=== PATIENT | female | born 1990 | race Caucasian/White ===

== ENCOUNTER 2017-03-12 12:09 | Observation (INO) | payer BC, MEDICAID ==
[2017-03-12 12:15] VITALS: TEMP 97.7
[2017-03-12] MEDS ORDERED: ONDANSETRON 4 MG/2 ML VIAL ONE (12:36)
[2017-03-12] MEDS ORDERED: LORazepam 2 MG/ML INJ ONE (12:47)
[2017-03-12] MEDS ORDERED: LORazepam 2 MG/ML INJ IVP ONE (12:53)
[2017-03-12] MEDS ORDERED: ONDANSETRON 4 MG/2 ML VIAL IVP ONE (12:53)
--- NOTE | 2017-03-12 13:00 | EDPHY ---
H & P Time Seen by Provider: 03/12/17 12:57 HPI/ROS: Chief complaint. Chest pain, vomiting HPI. 26-year-old female this morning 6 hours ago began have vomiting and diarrhea. She has epigastric and retrosternal chest discomfort described as pressure, sharp, burning. No radiation. No shortness of breath. Possible bad food exposure otherwise no travel. She does have a history of GERD. She was well yesterday and has not been sick. No fever. Boyfriend states history of GERD and patient is noncompliant with her medication ROS Constitutional. no fever/chills, no weakness Eyes. no problems with vision ENT. no sore throat, no nasal drainage Cardiovascular. Retrosternal chest pain Respiratory. no shortness of breath, no cough Abdominal. Epigastric pain with nausea vomiting and diarrhea . no problems urinating MS. no calf pain/swelling, no neck/back pain, no joint pain Skin. no rash Lymph. no swollen glands Neuro. no headache, no dizziness, no difficulty walking or with speech Past Medical/Surgical History: GERD Social History: Single, nonsmoker, no alcohol Smoking Status: Never smoked Physical Exam: General Appearance: Alert well-developed female moderate distress vital signs are stable Eyes: Pupils equal and round no pallor or injection. ENT, Mouth: Mucous membranes are moist. Respiratory: There are no retractions, lungs are clear to auscultation. Cardiovascular: Regular rate and rhythm. Gastrointestinal: Abdomen is soft with tenderness in the epigastrium. No masses. No organomegaly Neurological: Awake and alert, sensory and motor exams grossly normal. Skin: Warm and dry, no rashes. Musculoskeletal: Neck is supple nontender. Extremities symmetrical, full range of motion. Psychiatric: Patient is oriented X 3, there is no agitation. Constitutional: Initial Vital Signs Temperature (C) 36.5 C 03/12/17 12:12 Heart Rate 72 03/12/17 12:12 Respiratory Rate 18 03/12/17 12:12 Blood Pressure 99/80 L 03/12/17 12:12 O2 Sat (%) 97 03/12/17 12:12 O2 Delivery Mode Room Air Allergies/Adverse Reactions: No Known Allergies Allergy (Unverified 03/12/17 12:12) Home Medications: Medication Instructions Recorded NK [No Known Home Meds] 03/12/17 Medical Decision Making - Diagnostics EKG Interpretation: EKG interpreted by me shows normal sinus rhythm with normal interval and axis. QRS significant for incomplete right bundle branch block. Otherwise no significant ST elevation or depression. No arrhythmia. The rate is 63. No old EKGs for comparison Imaging Results: Imaging Impressions Chest X-Ray 03/12/17 13:07 Impression: Normal. One-view chest x-ray interpreted by me is normal Procedures: IV normal saline. Morphine for pain. Zofran for nausea ED Course/Re-evaluation: Re-evaluation at 2:50 p.m. patient continues to have epigastric pain and nausea. She is treated with Reglan and Benadryl. She and I discussed lab and imaging results. We discussed treatment plan including recommendation for admission. She expresses understanding and agreement Patient is again complaining of pain and nausea. She is also given Haldol 5 mg IV. I consulted and discussed case with Dr. Mancuso, hospitalist, who agrees to the admission Differential Diagnosis: I believe this is probably gastritis and esophagitis. She has been given IV Pepcid as well as GI cocktail. The history from boyfriend is that she has a his history of same and has been noncompliant with medications. I considered pulmonary embolus, acute coronary syndrome, pancreatitis however I do not see any evidence of this. However she is clearly not able to go home at this point. She will be admitted to observation. - Data Points Laboratory Results: Laboratory Results 03/12/17 12:29 03/12/17 12:29 03/12/17 03/12/17 03/12/17 13:20 12:29 12:29 WBC RBC Hgb Hct MCV MCH MCHC RDW Plt Count MPV Neut % (Auto) Lymph % (Auto) [place] % (Auto) Eos % (Auto) Baso % (Auto) Nucleat RBC Rel Count Absolute Neuts (auto) Absolute Lymphs (auto) Absolute Monos (auto) Absolute Eos (auto) Absolute Basos (auto) Absolute Nucleated RBC Immature Gran % Immature Gran # D-Dimer < 0.27 ug/mLFEU ug/mLFEU (0.00-0.50) Sodium 142 mEq/L mEq/L (134-144) Potassium 3.8 mEq/L mEq/L (3.5-5.2) Chloride 103 mEq/L mEq/L (97-110) Carbon Dioxide 25 mEq/l mEq/l (22-31) Anion Gap 14 mEq/L mEq/L (8-16) BUN 11 mg/dL mg/dL (7-23) Creatinine 0.6 mg/dL mg/dL (0.6-1.0) Estimated GFR > 60 Glucose 118 mg/dL H mg/dL (70-100) Calcium 10.3 mg/dL mg/dL (8.5-10.4) Troponin I < 0.012 ng/mL ng/mL (0-0.034) Lipase 131.0 IU/L IU/L (23-300) Beta HCG, Qual NEGATIVE 03/12/17 12:29 WBC 12.02 10^3/uL H 10^3/uL (3.80-9.50) RBC 5.52 10^6/uL H 10^6/uL (4.18-5.33) Hgb 15.5 g/dL g/dL (12.6-16.3) Hct 44.6 % % (38.0-47.0) MCV 80.8 fL L fL (81.5-99.8) MCH 28.1 pg pg (27.9-34.1) MCHC 34.8 g/dL g/dL (32.4-36.7) RDW 11.9 % % (11.5-15.2) Plt Count 272 10^3/uL 10^3/uL (150-400) MPV 8.9 fL fL (8.7-11.7) Neut % (Auto) 85.4 % H % (39.3-74.2) Lymph % (Auto) 7.6 % L % (15.0-45.0) [place] % (Auto) 6.2 % % (4.5-13.0) Eos % (Auto) 0.1 % L % (0.6-7.6) Baso % (Auto) 0.2 % L % (0.3-1.7) Nucleat RBC Rel Count 0.0 % % (0.0-0.2) Absolute Neuts (auto) 10.27 10^3/uL H 10^3/uL (1.70-6.50) Absolute Lymphs (auto) 0.91 10^3/uL L 10^3/uL (1.00-3.00) Absolute Monos (auto) 0.75 10^3/uL 10^3/uL (0.30-0.80) Absolute Eos (auto) 0.01 10^3/uL L 10^3/uL (0.03-0.40) Absolute Basos (auto) 0.02 10^3/uL 10^3/uL (0.02-0.10) Absolute Nucleated RBC 0.00 10^3/uL 10^3/uL (0-0.01) Immature Gran % 0.5 % % (0.0-1.1) Immature Gran # 0.06 10^3/uL 10^3/uL (0.00-0.10) D-Dimer Sodium Potassium Chloride Carbon Dioxide Anion Gap BUN Creatinine Estimated GFR Glucose Calcium Troponin I Lipase Beta HCG, Qual Medications Given: Discontinued Medications Al Hydroxide/Mg Hydroxide (Maalox Susp) 30 ml PO ONCE ONE Stop: 03/12/17 13:07 Last Admin: 03/12/17 13:30 Dose: 30 ml Diphenhydramine HCl (Benadryl Injection) 25 mg IVP EDNOW ONE Stop: 03/12/17 14:55 Last Admin: 03/12/17 15:11 Dose: 25 mg Diphenhydramine HCl (Benadryl Injection) 25 mg IVP EDNOW ONE Stop: 03/12/17 15:12 Last Admin: 03/12/17 15:28 Dose: Not Given Hyoscyamine Sulfate (Levsin, Hyomax-Sl) 0.25 mg PO ONCE ONE Stop: 03/12/17 13:07 Last Admin: 03/12/17 13:25 Dose: 0.25 mg Sodium Chloride (Ns) 1,000 mls @ 0 mls/hr IV ONCE ONE PRN Reason: Wide Open Stop: 03/12/17 13:07 Last Admin: 03/12/17 13:00 Dose: 1,000 mls Famotidine/Sodium Chloride (Pepcid 20 Mg (Premix)) 50 mls @ 200 mls/hr IV EDNOW ONE Stop: 03/12/17 13:20 Last Admin: 03/12/17 13:25 Dose: 50 mls Lidocaine (Lidocaine 2% Viscous) 15 ml PO ONCE ONE Stop: 03/12/17 13:07 Last Admin: 03/12/17 13:30 Dose: 15 ml Lorazepam (Ativan Injection) 0.5 mg IVP EDNOW ONE Stop: 03/12/17 12:54 Last Admin: 03/12/17 12:54 Dose: 0.5 mg Metoclopramide HCl (Reglan Injection) 10 mg IVP EDNOW ONE Stop: 03/12/17 14:55 Last Admin: 03/12/17 15:11 Dose: 10 mg Morphine Sulfate (Morphine) 6 mg IVP EDNOW ONE Stop: 03/12/17 13:07 Last Admin: 03/12/17 13:29 Dose: 6 mg Ondansetron HCl (Zofran) 4 mg IVP EDNOW ONE Stop: 03/12/17 12:54 Last Admin: 03/12/17 12:35 Dose: 4 mg Departure - Departure Disposition: [facility] Inpatient Acute Clinical Impression: Abdominal pain Qualifiers: Abdominal location: epigastric Qualified Code(s): R10.13 - Epigastric pain Condition: Fair
[2017-03-12] MEDS ORDERED: NS 1,000 ML IV ONE (13:06)
[2017-03-12] MEDS ORDERED: FAMOTIDINE 20 MG/NACL 50 ML IV ONE (13:06)
[2017-03-12] MEDS ORDERED: MAG HYDROX/AL HYDROX/SIMETH 30 ML UDCUP PO ONE (13:06)
[2017-03-12] MEDS ORDERED: LIDOCAINE 2% VISCOUS 15 ML UDCUP PO ONE (13:06)
[2017-03-12] MEDS ORDERED: HYOSCYAMINE SULFATE 0.125 MG TAB PO ONE (13:06)
[2017-03-12 13:15] LABS: % IMMATURE GRANULYOCYTES 0.5 % (0.0-1.1); ABSOLUTE IMMATURE GRANULOCYTES 0.06 10^3/uL (0.00-0.10); ADD DIFF? NO; ADD MORPH? NO; ADD SCAN? NO; ATYPICAL LYMPHOCYTE FLAG 0 (0-99); FRAGMENT RBC FLAG 0 (0-99); HEMATOCRIT 44.6 % (38.0-47.0); HEMOGLOBIN 15.5 g/dL (12.6-16.3); LEFT SHIFT FLG 10 (0-99); LIPEMIA HEMOLYSIS FLAG 90 (0-99); MEAN CELL HEMOGLOBIN 28.1 pg (27.9-34.1); MEAN CELL HEMOGLOBIN CONCENTR. 34.8 g/dL (32.4-36.7); MEAN CELL VOLUME 80.8 fL (81.5-99.8); MEAN PLATELET VOLUME 8.9 fL (8.7-11.7); PLATELET CLUMPS FLAG 0 (0-99); PLATELET COUNT 272 10^3/uL (150-400); RED BLOOD CELL COUNT 5.52 10^6/uL (4.18-5.33); RED CELL DISTRIBUTION WIDTH 11.9 % (11.5-15.2)
--- NOTE | 2017-03-12 13:28 | CPEKG ---
Heart Rate: 63 RR Interval: 952 P-R Interval: 128 QRSD Interval: 106 QT Interval: 424 QTC Interval: 435 P Naselle: 61 QRS Naselle: 77 T Wave Naselle: 54 EKG Severity - ABNORMAL ECG - EKG Impression: SINUS RHYTHM EKG Impression: INCOMPLETE RIGHT BUNDLE BRANCH BLOCK EKG Impression: LOW VOLTAGE IN FRONTAL LEADS Electronically Signed By: Tim Parker 12-Mar-2017 13:38:27
[2017-03-12 14:44] LABS: ANION GAP 14 mEq/L (8-16); CALCIUM 10.3 mg/dL (8.5-10.4); CARBON DIOXIDE 25 mEq/l (22-31); CHLORIDE 103 mEq/L (97-110); CREATININE 0.6 mg/dL (0.6-1.0); GLOMERULAR FILTRATION RATE > 60; GLUCOSE 118 mg/dL (70-100); POTASSIUM 3.8 mEq/L (3.5-5.2); SODIUM 142 mEq/L (134-144)
[2017-03-12] MEDS ORDERED: METOCLOPRAMIDE 10 MG/2 ML VIAL IVP ONE (14:54)
[2017-03-12 14:55] LABS: TROPONIN I < 0.012 ng/mL (0-0.034)
[2017-03-12] MEDS ORDERED: HALOPERIDOL LACT 5 MG/ML INJ IVP ONE (15:11)
[2017-03-12 15:13] VITALS: RESP 18; O2SAT 93
--- NOTE | 2017-03-12 15:46 | PDGENHP ---
History and Physical - Chief Complaint abdominal pain - History of Present Illness This is a 26-year-old female with no significant past medical history presents to the emergency department with abdominal pain. Pain began abruptly this morning is described as 10/10 in her upper abdomen and esophagus. It is associated with nausea vomiting and diarrhea. SHe is unaware if she had any bloody emesis or coffee-ground emesis. She has not been able to eat since the onset of her symptoms. She has some chills but denies fevers. Denies any sick contacts. She denies any history of GERD to me. In the emergency department she was treated with Zofran, Reglan, Benadryl, Haldol, IV Pepcid, Ativan, and 6 mg of IV morphine without significant improvement in her pain. History Information - Allergies/Home Medication List Allergies/Adverse Reactions: No Known Allergies Allergy (Unverified 03/12/17 12:12) Home Medications: NK [No Known Home Meds] 03/12/17 [Last Taken Unknown] I have personally reviewed and updated: family history, medical history, social history, surgical history - Past Medical History no pertinent PMH - Surgical History Reports: no pertinent surgical hx - Social History Smoking Status: Never smoked Alcohol Use: None Drug Use: None Review of Systems ROS: 10pt was reviewed & negative except for what was stated in HPI & below Physical Exam Temp Pulse Resp BP Pulse Ox 36.5 C 78 18 108/66 93 03/12/17 12:12 03/12/17 14:50 03/12/17 14:50 03/12/17 14:50 03/12/17 14:50 Constitutional: uncomfortable Eyes: PERRL, anicteric sclera, EOMI Ears, Nose, Mouth, Throat: moist mucous membranes, hearing normal, ears appear normal, no oral mucosal ulcers, dry mucous membranes Cardiovascular: regular rate and rhythym, no murmur, rub, or gallop, No tachycardia, No edema Respiratory: no respiratory distress, no rales or rhonchi, clear to auscultation Gastrointestinal: normoactive bowel sounds, soft, non-tender abdomen, no palpable masses, tenderness ( Diffuse in all 4 quadrants), No ascites, No guarding, No rebound Genitourinary: no bladder fullness, no bladder tenderness Skin: warm, normal color, no rashes or abrasions, no fluctuance, no induration, No mottled Musculoskeletal: full muscle strength, no muscle tenderness, normal joint ROM, no joint effusions Neurologic: AAOx3, CN II-XII Intact, No facial droop Lymph, Heme, Immunologic: no cervical LAD, no supraclavicular LAD Lab Data & Imaging Review 03/12/17 12:29 03/12/17 12: WBC 12.02 10^3/uL (3.80-9.50) H 03/12/17 12: RBC 5.52 10^6/uL (4.18-5.33) H 03/12/17 12: Hgb 15.5 g/dL (12.6-16.3) 03/12/17 12: Hct 44.6 % (38.0-47.0) 03/12/17 12: MCV 80.8 fL (81.5-99.8) L 03/12/17 12: MCH 28.1 pg (27.9-34.1) 03/12/17 12: MCHC 34.8 g/dL (32.4-36.7) 03/12/17 12: RDW 11.9 % (11.5-15.2) 03/12/17 12: Plt Count 272 10^3/uL (150-400) 03/12/17 12: MPV 8.9 fL (8.7-11.7) 03/12/17 12: Neut % (Auto) 85.4 % (39.3-74.2) H 03/12/17 12: Lymph % (Auto) 7.6 % (15.0-45.0) L 03/12/17 12: [place] % (Auto) 6.2 % (4.5-13.0) 03/12/17 12: Eos % (Auto) 0.1 % (0.6-7.6) L 03/12/17 12: Baso % (Auto) 0.2 % (0.3-1.7) L 03/12/17 12: Nucleat RBC Rel Count 0.0 % (0.0-0.2) 03/12/17 12: Absolute Neuts (auto) 10.27 10^3/uL (1.70-6.50) H 03/12/17 12:29 Absolute Lymphs (auto) 0.91 10^3/uL (1.00-3.00) L 03/12/17 12:29 Absolute Monos (auto) 0.75 10^3/uL (0.30-0.80) 03/12/17 12:29 Absolute Eos (auto) 0.01 10^3/uL (0.03-0.40) L 03/12/17 12:29 Absolute Basos (auto) 0.02 10^3/uL (0.02-0.10) 03/12/17 12: Absolute Nucleated RBC 0.00 10^3/uL (0-0.01) 03/12/17 12: Immature Gran % 0.5 % (0.0-1.1) 03/12/17 12: Immature Gran # 0.06 10^3/uL (0.00-0.10) 03/12/17 12:29 D-Dimer < 0.27 ug/mLFEU (0.00-0.50) 03/12/17 13:20 Sodium 142 mEq/L (134-144) 03/12/17 12:29 Potassium 3.8 mEq/L (3.5-5.2) 03/12/17 12: Chloride 103 mEq/L (97-110) 03/12/17 12: Carbon Dioxide 25 mEq/l (22-31) 03/12/17 12: Anion Gap 14 mEq/L (8-16) 03/12/17 12: BUN 11 mg/dL (7-23) 03/12/17 12:29 Creatinine 0.6 mg/dL (0.6-1.0) 03/12/17 12:29 Estimated GFR > 60 03/12/17 12: Glucose 118 mg/dL (70-100) H 03/12/17 12:29 Calcium 10.3 mg/dL (8.5-10.4) 03/12/17 12:29 Troponin I < 0.012 ng/mL (0-0.034) 03/12/17 12: Lipase 131.0 IU/L (23-300) 03/12/17 12:29 Beta HCG, Qual NEGATIVE 03/12/17 12:29 Visualized and Interpreted Chest x-ray results: Yes Chest X-Ray results: no infiltrate, normal Visualized and Interpreted EKG results: Yes EKG Interpretation: Positive for: normal sinsus rhythm ( 63 beats per minute), right bundle branch block ( incomplete). Negative for: ST elevation, ST depression Assessment & Plan Assessment: This is a 26-year-old female with no significant past medical history presenting with: # diffuse abdominal an esophageal pain in the setting of nausea vomiting diarrhea suspect acute gastroenteritis versus gastritis - place in observation - IV fluids - IV antiemetics and pain medications as needed # mild leukocytosis likely due to above - continue to monitor
[2017-03-12] MEDS ORDERED: ONDANSETRON 4 MG/2 ML VIAL IVP PRN (15:50)
[2017-03-12] MEDS ORDERED: ACETAMINOPHEN 325 MG TAB PO PRN (15:50)
[2017-03-12] MEDS ORDERED: LORazepam 2 MG/ML INJ IVP PRN (15:50)
[2017-03-12] MEDS ORDERED: PROMETHAZINE HCL 25 MG SUPPR PR PRN (15:51)
[2017-03-12] MEDS ORDERED: PANTOPRAZOLE SODIUM 40 MG in NS 100 ML IV SCH (16:00)
[2017-03-12] MEDS ORDERED: D5W 1/2 NS W/ 20 KCl/L 1,000 ML IV SCH (16:00)
[2017-03-12 16:10] VITALS: BP 116/67; PULSE 74
--- NOTE | 2017-03-12 21:12 | GDS ---
[f rep st] DISCHARGE SUMMARY DISCHARGE DIAGNOSIS: Improved abdominal pain, and nausea, vomiting, and diarrhea, most likely due t o acute gastroenteritis versus gastritis. OBSERVATION COURSE TODAY: Nausea, vomiting, diarrhea, and abdominal pain: The patient was placed o n observation. After receiving Haldol, Ativan, Reglan, morphine in the emergency department, she wa s transferred to the observation unit. Upon arrival to the observation unit, her symptoms improved. She is now able to tolerate clear liquids, and the patient has requested to be discharged home. DISCHARGE MEDICATIONS: Please refer to discharge medication reconciliation in [facility]. DISCHARGE INSTRUCTIONS: The patient was discharged from the hospital where she should follow up wit h her primary care provider in the next week. She should seek medical attention if her symptoms per sist or worsen. /[id number]/MODL
== END 2017-03-12 19:52 | disposition home or self-care (01) ==
LOC: F1N 17:03
PROVIDERS: ADMIT Family Medicine; ATTEND Family Medicine
DX: R10.13 Epigastric pain (principal); R11.2 Nausea with vomiting, unspecified; R19.7 Diarrhea, unspecified
CPT/HCPCS: 71010; 93005; G0378; 96374; J1200; J2060; J2405; J2765

== ENCOUNTER 2017-04-28 16:37 | Emergency (ER) | payer MEDICAID ==
[2017-04-28 16:44] VITALS: BP 106/72; PULSE 67; RESP 16; TEMP 98.2; O2SAT 94
--- NOTE | 2017-04-28 16:59 | EDPHY ---
H & P Time Seen by Provider: 04/28/17 16:49 HPI/ROS: CHIEF COMPLAINT: Laceration right index finger HISTORY OF PRESENT ILLNESS: 26-year-old female presents to the emergency department with a laceration to her right index finger. Patient states just prior to arrival she cut her finger with a new knife. She is right-hand dominant. She believes her tetanus shot is current. She denies any other trauma or injury. ROS: Denies numbness or tingling in the fingers, retained foreign body, injury to the other fingers. Past Medical/Surgical History: Negative Social History: Single Smoking Status: Never smoked Physical Exam: On examination patient has 1.5 cm laceration to the lateral aspect of the right index finger overlying PIP joint. She has full flexion and full extension of her fingers. The other fingers do not appear injured. Normal sensation to light touch with normal 2 point discrimination. Strong radial pulse at the right wrist no palpable bony tenderness. Slow active bleeding noted to the wound. Constitutional: Initial Vital Signs Temperature (C) 36.8 C 04/28/17 16:42 Heart Rate 67 04/28/17 16:42 Respiratory Rate 16 04/28/17 16:42 Blood Pressure 106/72 04/28/17 16:42 O2 Sat (%) 94 04/28/17 16:42 O2 Delivery Mode Room Air Allergies/Adverse Reactions: No Known Allergies Allergy (Verified 04/28/17 16:41) Home Medications: Medication Instructions Recorded NK [No Known Home Meds] 04/28/17 MDM/Departure - MDM Procedures: Laceration repair. Verbal consent was obtained from the patient. The 1.5 cm laceration on the right index finger was anesthetized using 1% lidocaine with epinephrine. The wound was irrigated with saline, draped and explored to its base with a gloved finger. There were no deep structures involved. No tendon injury was identified. The wound was repaired with 5 0 Ethilon, 4 sutures. The wound repair was simple. The procedure was performed by myself. ED Course/Re-evaluation: The wound was repaired, see procedure note. Her tetanus shot is current. She was given wound care precautions. - Depart Disposition: Home, Routine, Self-Care Clinical Impression: Laceration of right index finger Qualifiers: Encounter type: initial encounter Damage to nail status: without damage Foreign body presence: without foreign body Qualified Code(s): S61.210A - Laceration without foreign body of right index finger without damage to nail, initial encounter Condition: Good Instructions: Care For Your Stitches (ED), Laceration (ED), Acute Wounds (ED) Additional Instructions: Wound Care Follow-Up: Removal of sutures in 10 days. Suture removal is complimentary in uncomplicated cases. Infection or abnormal findings would require reevaluation by the MD. In that case, you may be billed. Return if you notice any signs or symptoms of infection such as redness, swelling, increased pain, fever, purulent drainage.
== END 2017-04-28 17:15 | disposition home or self-care (01) ==
PROC: 0HQFXZZ Repair Right Hand Skin, External Approach (ICD-10-PCS; principal; 2017-04-28)
DX: S61.210A Laceration without foreign body of right index finger without damage to nail, initial encounter (principal); W26.0XXA Contact with knife, initial encounter

== ENCOUNTER 2018-08-27 20:57 | Emergency (ER) | payer MEDICAID, OTHER ==
--- NOTE | 2018-08-27 21:18 | EDPHY ---
H & P Smoking Status: Never smoked Time Seen by Provider: 08/27/18 21:11 HPI/ROS: CHIEF COMPLAINT: Vomiting and "esophagus pain" HISTORY OF PRESENT ILLNESS: Patient is a 27-year-old female who reports "esophagus pain for ever". She reports worsening pain since current episode of vomiting and diarrhea starting this morning. She denies any fever chills or blood in the emesis or stool. She has never had a thorough evaluation for the source of her esophagus pain. She denies any history of GI bleed. She denies any current drug or alcohol use. She denies in pain with urination. REVIEW OF SYSTEMS: Constitutional: No fever, no chills. Eyes: No discharge. ENT: No sore throat. Cardiovascular: + chest pain, no palpitations. Respiratory: No cough, no shortness of breath. Gastrointestinal: No abdominal pain, + vomiting. Genitourinary: No hematuria. Musculoskeletal: No back pain. Skin: No rashes. Neurological: No headache. (Garret Rubin) Physical Exam: General Appearance: Alert and no distress. Vomiting. Appears pale Eyes: Pupils equal and round no injection. Respiratory: Chest is nontender, lungs are clear to auscultation. Cardiac: regular rate and rhythm. Gastrointestinal: Abdomen is soft and nontender, no masses, bowel sounds normal. Musculoskeletal: Neck is supple and nontender. Extremities have full range of motion and are nontender. Skin: No rashes or lesions. (Garret Rubin) Constitutional: Initial Vital Signs Temperature (C) 37.6 C 08/27/18 21:00 Heart Rate 76 08/27/18 21:00 Respiratory Rate 18 08/27/18 21:00 Blood Pressure 125/76 H 08/27/18 21:00 O2 Sat (%) 96 08/27/18 21:00 O2 Delivery Mode Room Air Allergies/Adverse Reactions: No Known Allergies Allergy (Verified 08/27/18 21:02) Home Medications: Medication Instructions Recorded ALPRAZolam [Xanax 1 MG (*)] 1 mg PO BID 08/27/18 Ondansetron [Zofran Odt] 4 mg PO Q8HRS #16 tab.rapdis 08/27/18 Medical Decision Making ED Course/Re-evaluation: 27-year-old female here with approximately 24 hr of vomiting and diarrhea. She states this vomiting is worsening chronic esophageal pain. She is hemodynamically stable and has no acute anemia or electrolyte disturbances. She was given IV hydration along with Pepcid and Toradol, Zofran and Reglan feels significantly improved. She was tolerating p.o. Before time of discharge. (Garret Rubin) This patient was evaluated and managed by the physician medical assistant. I have reviewed the documentation and agree with the plan of care. I am the secondary supervising physician. (Tatum Langford) Differential Diagnosis: Pancreatitis, bowel obstruction, dehydration, electrolyte abnormality, UTI, (Garret Rubin) - Data Points Laboratory Results: Laboratory Results 08/27/18 21:30 08/27/18 21:38 Medications Given: Discontinued Medications Al Hydroxide/Mg Hydroxide (Maalox Susp) 30 ml PO EDNOW ONE Stop: 08/27/18 21:24 Last Admin: 08/27/18 21:42 Dose: 30 ml Diphenhydramine HCl (Benadryl Injection) 25 mg IVP EDNOW ONE Stop: 08/27/18 22:25 Last Admin: 08/27/18 22:33 Dose: 25 mg Famotidine (Pepcid) 20 mg IVP EDNOW ONE Stop: 08/27/18 21:23 Last Admin: 08/27/18 21:35 Dose: 20 mg Sodium Chloride (Ns) 1,000 mls @ 0 mls/hr IV EDNOW ONE; Wide Open PRN Reason: Protocol Stop: 08/27/18 21:23 Last Admin: 08/27/18 21:32 Dose: 1,000 mls Ketorolac Tromethamine (Toradol) 15 mg IVP EDNOW ONE Stop: 08/27/18 21:23 Last Admin: 08/27/18 21:33 Dose: 15 mg Lidocaine (Lidocaine 2% Viscous) 5 ml PO EDNOW ONE Stop: 08/27/18 21:24 Last Admin: 08/27/18 21:42 Dose: 5 ml Metoclopramide HCl (Reglan Injection) 10 mg IVP EDNOW ONE Stop: 08/27/18 22:34 Last Admin: 08/27/18 22:33 Dose: 10 mg Ondansetron HCl (Zofran) 4 mg IVP ONCE ONE Stop: 08/27/18 21:23 Last Admin: 08/27/18 21:33 Dose: 4 mg Departure - Departure Disposition: Home, Routine, Self-Care Clinical Impression: Nausea and vomiting Condition: Good Instructions: Acute Nausea and Vomiting (ED) Referrals: NONE *PRIMARY CARE P,. [Primary Care Provider] - As per Instructions [facility],. [Clinic] - As per Instructions Prescriptions: Ondansetron [Zofran Odt] 4 mg PO Q8HRS #16 tab.[place]
[2018-08-27] MEDS ORDERED: KETOROLAC 15 MG/1 ML SDV IVP ONE (21:22)
[2018-08-27] MEDS ORDERED: FAMOTIDINE 20 MG/2 ML SDV IVP ONE (21:22)
[2018-08-27] MEDS ORDERED: ONDANSETRON 4 MG/2 ML VIAL IVP ONE (21:22)
[2018-08-27] MEDS ORDERED: NS 1,000 ML IV ONE (21:22)
[2018-08-27] MEDS ORDERED: LIDOCAINE 2% VISCOUS 15 ML UDCUP PO ONE (21:23)
[2018-08-27] MEDS ORDERED: MAG HYDROX/AL HYDROX/SIMETH 30 ML UDCUP PO ONE (21:23)
[2018-08-27] MEDS ORDERED: METOCLOPRAMIDE 10 MG/2 ML VIAL ONE (22:31)
[2018-08-27] MEDS ORDERED: METOCLOPRAMIDE 10 MG/2 ML VIAL IVP ONE (22:33)
[2018-08-27 22:39] VITALS: BP 120/71
[2018-08-27 23:29] LABS: PLATELET COUNT 237 10^3/uL (150-400)
[2018-08-28] MEDS ORDERED: *PHM DO NOT USE-METOCLOPRAMIDE 0.1 MG/ML IV NEWBORN SYR IV ONE (22:23)
== END 2018-08-27 23:38 | disposition home or self-care (01) ==
DX: R11.2 Nausea with vomiting, unspecified (principal); R19.7 Diarrhea, unspecified
CPT/HCPCS: 96374; J1200; J1885; J2405; J2765

== ENCOUNTER 2019-02-19 07:13 | Emergency (ER) | payer MEDICAID ==
[2019-02-19] MEDS ORDERED: KETOROLAC 15 MG/1 ML SDV IVP ONE (07:25)
[2019-02-19] MEDS ORDERED: FAMOTIDINE 20 MG/2 ML SDV IVP ONE (07:25)
[2019-02-19] MEDS ORDERED: HALOPERIDOL LACT 5 MG/ML INJ IVP ONE (07:25)
[2019-02-19] MEDS ORDERED: NS 1,000 ML IV ONE ×2 (07:28→07:31)
--- NOTE | 2019-02-19 07:33 | EDPHY ---
H & P Stated Complaint: cyclical vomiting/etoh last night Time Seen by Provider: 02/19/19 07:21 HPI/ROS: Chief Complaint: Vomiting, "esophagus pain" HPI: 28-year-old woman with a history of cyclic vomiting syndrome presents complaining of nausea vomiting and "esophagus pain". The patient has had similar episodes multiple times in the past. Patient states that she be sent drinking alcohol heavily last night which she believes precipitated this event. She does not drink regularly. Denies any other drug use. Vomit has be green. No blood or coffee-ground emesis. No dark tarry stools or blood in her stools. Moderate epigastric abdominal discomfort. No urinary urgency or frequency. Does not believe she is . No fevers or chills. No cough or shortness of breath. ROS: 10 systems were reviewed and were negative except those elements noted in the HPI. PMH: Cyclic vomiting Social History: No smoking, occasional alcohol, no recreational drug use Family History: non-contributory Physical Exam: Gen: Awake, Alert, No Distress HEENT: Nose: no rhinorrhea Eyes: PERRLA, EOMI Mouth: Moist mucosa Neck: Supple, no JVD Chest: nontender, lungs clear to auscultation Heart: S1, S2 normal, no murmur Abd: Soft, non-tender, no guarding Back: no CVA tenderness, no midline tenderness Ext: no edema, non-tender Skin: no rash Neuro: CN II-XII intact, Sensation grossly intact, Strength 5/5 in bilateral upper and lower extremities - Personal History LMP (Females 10-55): IUD In Place Current Tetanus Diphtheria and Acellular Pertussis (TDAP): Yes - Medical/Surgical History Hx Asthma: No Hx Chronic Respiratory Disease: No Hx Diabetes: No Hx Cardiac Disease: No Hx Renal Disease: No Hx Cirrhosis: No Hx Alcoholism: No Hx HIV/AIDS: No Hx Splenectomy or Spleen Trauma: No Other PMH: denies - Social History Smoking Status: Never smoked Constitutional: Initial Vital Signs Temperature (C) 36.5 C 02/19/19 07:16 Heart Rate 84 02/19/19 07:16 Respiratory Rate 18 02/19/19 07:16 Blood Pressure 104/66 02/19/19 07:16 O2 Sat (%) 99 02/19/19 07:16 O2 Delivery Mode Room Air Allergies/Adverse Reactions: No Known Allergies Allergy (Verified 02/19/19 07:15) Home Medications: Medication Instructions Recorded ALPRAZolam [Xanax 1 MG (*)] 1 mg PO BID 08/27/18 Ondansetron [Zofran Odt] 4 mg PO Q8HRS #16 tab.rapdis 08/27/18 Ondansetron Odt [Zofran Odt 4 mg 4 mg PO Q4 PRN #10 tab 02/19/19 (*)] Medical Decision Making ED Course/Re-evaluation: The patient symptoms have improved dramatically after IV Haldol, Toradol, Pepcid , and a GI cocktail. She is no longer vomiting. States her pain has resolved. She has continued to receive IV hydration. Plan will be to progress oral fluid intake with ice chips and re-evaluate. Abdomen is soft and benign. - Data Points Laboratory Results: Laboratory Results 02/19/19 07:33 02/19/19 07:33 02/19/19 02/19/19 02/19/19 07:33 07:33 07:33 WBC 6.78 10^3/uL 10^3/uL (3.80-9.50) RBC 4.94 10^6/uL 10^6/uL (4.18-5.33) Hgb 14.4 g/dL g/dL (12.6-16.3) Hct 41.2 % % (38.0-47.0) MCV 83.4 fL fL (81.5-99.8) MCH 29.1 pg pg (27.9-34.1) MCHC 35.0 g/dL g/dL (32.4-36.7) RDW 12.7 % % (11.5-15.2) Plt Count 270 10^3/uL 10^3/uL (150-400) MPV 8.7 fL fL (8.7-11.7) Neut % (Auto) 82.1 % H % (39.3-74.2) Lymph % (Auto) 15.0 % % (15.0-45.0) [place] % (Auto) 2.2 % L % (4.5-13.0) Eos % (Auto) 0.1 % L % (0.6-7.6) Baso % (Auto) 0.3 % % (0.3-1.7) Nucleat RBC Rel Count 0.0 % % (0.0-0.2) Absolute Neuts (auto) 5.56 10^3/uL 10^3/uL (1.70-6.50) Absolute Lymphs (auto) 1.02 10^3/uL 10^3/uL (1.00-3.00) Absolute Monos (auto) 0.15 10^3/uL L 10^3/uL (0.30-0.80) Absolute Eos (auto) 0.01 10^3/uL L 10^3/uL (0.03-0.40) Absolute Basos (auto) 0.02 10^3/uL 10^3/uL (0.02-0.10) Absolute Nucleated RBC 0.00 10^3/uL 10^3/uL (0-0.01) Immature Gran % 0.3 % % (0.0-1.1) Immature Gran # 0.02 10^3/uL 10^3/uL (0.00-0.10) Sodium 140 mEq/L mEq/L (135-145) Potassium 4.2 mEq/L mEq/L (3.5-5.2) Chloride 105 mEq/L mEq/L (97-110) Carbon Dioxide 19 mEq/l L mEq/l (22-31) Anion Gap 16 mEq/L H mEq/L (6-14) BUN 8 mg/dL mg/dL (7-23) Creatinine 0.5 mg/dL L mg/dL (0.6-1.0) Estimated GFR > 60 Glucose 136 mg/dL H mg/dL (70-100) Calcium 9.6 mg/dL mg/dL (8.5-10.4) Beta HCG, Qual NEGATIVE Medications Given: Discontinued Medications Al Hydroxide/Mg Hydroxide (Maalox Susp) 30 ml PO ONCE ONE Stop: 02/19/19 07:48 Last Admin: 02/19/19 07:52 Dose: 30 ml Al Hydroxide/Mg Hydroxide (Maalox Susp) 30 ml PO ONCE ONE Stop: 02/19/19 09:04 Last Admin: 02/19/19 09:07 Dose: 30 ml Famotidine (Pepcid) 20 mg IVP EDNOW ONE Stop: 02/19/19 07:26 Last Admin: 02/19/19 07:34 Dose: 20 mg Haloperidol Lactate (Haldol Injection) 2.5 mg IVP EDNOW ONE Stop: 02/19/19 07:26 Last Admin: 02/19/19 07:34 Dose: 2.5 mg Sodium Chloride (Ns) 1,000 mls @ 0 mls/hr IV ONCE ONE; Wide Open PRN Reason: Protocol Stop: 02/19/19 07:29 Last Admin: 02/19/19 07:33 Dose: 1,000 mls Sodium Chloride (Ns) 1,000 mls @ 0 mls/hr IV ONCE ONE; Wide Open PRN Reason: Protocol Stop: 02/19/19 07:32 Last Admin: 02/19/19 07:34 Dose: 1,000 mls Ketorolac Tromethamine (Toradol) 15 mg IVP EDNOW ONE Stop: 02/19/19 07:26 Last Admin: 02/19/19 07:34 Dose: 15 mg Lidocaine (Lidocaine 2% Viscous) 15 ml PO ONCE ONE Stop: 02/19/19 07:48 Last Admin: 02/19/19 07:52 Dose: 15 ml Lidocaine (Lidocaine 2% Viscous) 15 ml PO ONCE ONE Stop: 02/19/19 09:04 Last Admin: 02/19/19 09:07 Dose: 15 ml Metoclopramide HCl (Reglan Injection) 10 mg IVP EDNOW ONE Stop: 02/19/19 09:12 Last Admin: 02/19/19 09:13 Dose: 10 mg Departure - Departure Disposition: Home, Routine, Self-Care Clinical Impression: Nausea and vomiting, Dehydration Condition: Good Instructions: Ondansetron (By mouth), Acute Nausea and Vomiting (ED) Additional Instructions: You may take famotidine available [id number] for reflux or gastritis pain. Follow up with primary care physician in 2-3 days for further evaluation. Return to the emergency department for uncontrolled vomiting, worsening abdominal pain, fevers or chills, or any other concerns. Referrals: NONE *PRIMARY CARE P,. [Primary Care Provider] - As per Instructions Prescriptions: Ondansetron Odt [Zofran Odt 4 mg (*)] 4 mg PO Q4 PRN #10 tab PRN Reason: nausea
[2019-02-19] MEDS ORDERED: LIDOCAINE 2% VISCOUS 15 ML UDCUP PO ONE ×2 (07:47→09:03)
[2019-02-19] MEDS ORDERED: MAG HYDROX/AL HYDROX/SIMETH 30 ML UDCUP PO ONE ×2 (07:47→09:03)
[2019-02-19 07:56] LABS: PLATELET COUNT 270 10^3/uL (150-400)
[2019-02-19] MEDS ORDERED: METOCLOPRAMIDE 10 MG/2 ML VIAL IVP ONE (09:11)
[2019-02-19] MEDS ORDERED: ONDANSETRON 4 MG/2 ML VIAL IVP ONE (09:53)
[2019-02-19 11:00] VITALS: BP 127/85
== END 2019-02-19 11:10 | disposition home or self-care (01) ==
DX: R11.2 Nausea with vomiting, unspecified (principal); E86.0 Dehydration
CPT/HCPCS: 96374; J1630; J1885; J2405; J2765